=== PATIENT | male | born 1950 | race Caucasian/White ===

== ENCOUNTER 2025-04-24 06:20 | Day surgery (SDC) | payer OTHER, SELFPAY | END 2025-04-24 10:20 | disposition home or self-care (01) | LOC: GI 06:20 | PROVIDERS: ATTENDING PHYSICIAN Specialist | DX: Z12.11 Encounter for screening for malignant neoplasm of colon (principal); K57.30 Diverticulosis of large intestine without perforation or abscess without bleeding; K55.20 Angiodysplasia of colon without hemorrhage; D12.5 Benign neoplasm of sigmoid colon | CPT/HCPCS: 45380; 88305 ==